=== PATIENT | male | born 1955 | race Caucasian/White ===

== ENCOUNTER 2018-05-28 19:36 | Emergency (ER) | payer MEDICAID ==
--- NOTE | 2018-05-28 19:47 | EDPHY ---
H & P Stated Complaint: Pt Hx of asthma, insp/exp wheeze, compensating, applied O2 Time Seen by Provider: 05/28/18 19:47 HPI/ROS: CHIEF COMPLAINT: Dyspnea HISTORY OF PRESENT ILLNESS: The patient presents the emergency department with complaints of dyspnea. He has a history of asthma. He has been using his albuterol frequently today. The patient had been on Symbicort but has not use that medication in several months. The patient denies any fever or productive cough. He denies any asymmetric calf pain or swelling. The patient denies significant past medical history aside from asthma. REVIEW OF SYSTEMS: A comprehensive 10 point review of systems is otherwise negative aside from elements mentioned in the history of present illness. Source: Patient Exam Limitations: No limitations - Personal History Current Tetanus/Diphtheria Vaccine: Yes - Medical/Surgical History Hx Asthma: No Hx Chronic Respiratory Disease: Yes Hx Diabetes: No Hx Cardiac Disease: No Hx Renal Disease: No Hx Cirrhosis: No Hx Alcoholism: No Hx HIV/AIDS: No Hx Splenectomy or Spleen Trauma: No Other PMH: Asthma, - Social History Smoking Status: Never smoked - Physical Exam Exam: General Appearance: Alert, no distress Eyes: Pupils equal and round no pallor or injection ENT, Mouth: Mucous membranes moist Respiratory: Mild tachypnea, expiratory wheezing Cardiovascular: Regular rate and rhythm Gastrointestinal: Abdomen is soft and nontender, no masses, bowel sounds normal Neurological: 5/5 strength all 4 extremities Skin: Warm and dry, no rashes Musculoskeletal: Neck is supple nontender Extremities: symmetrical, full range of motion Constitutional: Initial Vital Signs Heart Rate 82 05/28/18 19:40 Respiratory Rate 22 H 05/28/18 19:40 Blood Pressure 138/76 H 05/28/18 19:40 O2 Sat (%) 88 L 05/28/18 19:40 O2 Delivery Mode Nasal Cannula O2 (L/minute) 2 Allergies/Adverse Reactions: No Known Allergies Allergy (Verified 05/28/18 19:45) Home Medications: Medication Instructions Recorded Albuterol Dose Unk 07/27/12 predniSONE [prednisone 20mg (RX)] 3 tab PO DAILY #15 tab 05/28/18 Medical Decision Making ED Course/Re-evaluation: The patient presents to the ED with an acute asthma exacerbation. The patient has wheezing and mildly tachypneic upon arrival. He was treated with albuterol , Atrovent and IV Solu-Medrol. Re-evaluated the patient at 10:00 p.m.. He states his breathing feels much more comfortable. He has no complaints of acute dyspnea. He is 93% on room air. The patient has adequate supplies of albuterol. He will be given a 5 day course of prednisone. He is advised to return to the emergency department for any recurrent dyspnea or other concerns. He will follow up his primary care provider for a recheck this week. Differential Diagnosis: Differential diagnosis considered includes asthma, bronchitis, pneumonia - Data Points Medications Given: Discontinued Medications Albuterol (Proventil Neb) 3 ml IH EDNOW ONE Stop: 05/28/18 19:50 Last Admin: 05/28/18 19:55 Dose: 3 ml Albuterol/Ipratropium (Duoneb) 3 ml IH EDNOW ONE Stop: 05/28/18 19:50 Last Admin: 05/28/18 19:55 Dose: 3 ml Methylprednisolone Sodium Succinate (Solu-Medrol) 125 mg IVP EDNOW ONE Stop: 05/28/18 19:50 Last Admin: 05/28/18 19:55 Dose: 125 mg Departure - Departure Disposition: Home, Routine, Self-Care Clinical Impression: Exacerbation of asthma Condition: Good Instructions: Bronchospasm (ED) Additional Instructions: 1. Use albuterol inhaler up to every 2 hr as needed. 2. Prednisone as directed for next 5 days. 3. Please return to the ED for worsening respiratory symptoms, high fever, chest pain or other concerns. 4. Please follow-up with your primary care provider for a recheck in the next week. Referrals: Roxane Douglass, PAC [Primary Care Provider] - As per Instructions
[2018-05-28] MEDS ORDERED: ALBUTEROL 3 ML DEYVIAL IH ONE (19:49)
[2018-05-28] MEDS ORDERED: methylPREDNISolone SOD SUCC 125 MG/2 ML VIAL IVP ONE (19:49)
[2018-05-28] MEDS ORDERED: IPRATROPIUM/ALBUTEROL 3 ML DEYVIAL IH ONE (19:49)
[2018-05-28] MEDS ORDERED: methylPREDNISolone SOD SUCC 125 MG/2 ML VIAL ONE (19:53)
[2018-05-28 22:06] VITALS: BP 128/83
== END 2018-05-28 22:06 | disposition home or self-care (01) ==
DX: J45.901 Unspecified asthma with (acute) exacerbation (principal)
CPT/HCPCS: 96374; J2930; J7613

== ENCOUNTER 2019-01-08 21:24 | Emergency (ER) | payer MEDICAID ==
[2019-01-08] MEDS ORDERED: IPRATROPIUM/ALBUTEROL 3 ML DEYVIAL IH ONE (21:41)
[2019-01-08] MEDS ORDERED: methylPREDNISolone SOD SUCC 125 MG/2 ML VIAL IVP ONE (21:41)
[2019-01-08 22:04] LABS: PLATELET COUNT 295 10^3/uL (150-400)
[2019-01-08] MEDS ORDERED: ALBUTEROL 3 ML DEYVIAL IH ONE (22:12)
--- NOTE | 2019-01-08 22:12 | EDPHY ---
H & P Stated Complaint: sob, cough, getting worse since last week Time Seen by Provider: 01/08/19 22:09 HPI/ROS: HPI: This is a 63-year-old male who presents with Chief Complaint: sob, cough, getting worse since last week Location: Chest Quality: Dyspnea, cough Duration: 1 week Signs and Symptoms: + shortness of breath at rest, + shortness of breath on exertion, + cough, no chest pain, no palpitations, no lower extremity edema, + wheezing, no orthopnea, no paroxysmal nocturnal dyspnea, no fever, no injury/ trauma, no hemoptysis, no carpal pedal spasms Timing: Gradually worsening Severity: Moderate to severe Context: Patient presents with one-week history of shortness of breath, nonproductive cough, wheezing that has slowly worsened. Patient reports that he has audible wheezing and increased work of breathing. He reports shortness breath at on exertion initially earlier in the week but now at rest. Denies any fever, headache, lower extremity edema, orthopnea, hemoptysis. Patient reports that he does not have inhalers at home. Nonsmoker. Did not receive influenza vaccine this year. Modifying Factors: Advair and albuterol inhaler Comment: ROS: A comprehensive 10 system review of systems is otherwise negative aside from elements mentioned in the history of present illness. MEDICAL/SURGICAL/SOCIAL HISTORY: Medical history: Asthma Surgical history: Denies Social history: Never smoked. CONSTITUTIONAL: Nontoxic-appearing, mild distress, elderly physically fit white male, awake and alert, no obvious distress HEENT: Atraumatic and normocephalic, PERRL, EOMI. Nares patent; no rhinorrhea; no nasal mucosal edema. Tympanic membranes clear. Oropharynx clear, no exudate and moist pink mucosa. Airway patent. No lymphadenopathy. No meningismus. Cardiovascular: Normal S1/S2, regular rate, regular rhythm, without murmur rub or gallop. PULMONARY/CHEST: Symmetrical and nontender. Inspiratory and expiratory wheezing bilaterally. Fair air movement. + accessory muscle usage. ABDOMEN: Soft, nondistended, nontender, no rebound, no guarding, no peritoneal signs, no masses or organomegaly. No CVAT. EXTREMITIES: 2/2 pulses, strength 5/5, no deformities, no clubbing, no cyanosis or edema. NEUROLOGICAL: no focal neuro deficits. GCS 15. SKIN: Warm and dry, no erythema. no rash. Good capillary refill. Source: Patient Exam Limitations: No limitations - Personal History Current Tetanus/Diphtheria Vaccine: Yes - Medical/Surgical History Hx Asthma: Yes Hx Chronic Respiratory Disease: Yes Hx Diabetes: No Hx Cardiac Disease: No Hx Renal Disease: No Hx Cirrhosis: No Hx Alcoholism: No Hx HIV/AIDS: No Hx Splenectomy or Spleen Trauma: No Other PMH: Asthma, oral surgeries - Social History Smoking Status: Never smoked Constitutional: Initial Vital Signs Temperature (C) 36.8 C 01/08/19 21:32 Heart Rate 72 01/08/19 21:32 Respiratory Rate 24 H 01/08/19 21:32 Blood Pressure 135/100 H 01/08/19 21:32 O2 Sat (%) 88 L 01/08/19 21:32 O2 Delivery Mode Room Air Allergies/Adverse Reactions: No Known Allergies Allergy (Verified 01/08/19 21:31) Home Medications: Medication Instructions Recorded Albuterol Dose Unk 07/27/12 Advair 250/50 (*) 01/08/19 Doxycycline Hyclate 100 mg PO BID #14 tab 01/08/19 predniSONE 50 mg PO DAILY 5 Days tablet 01/08/19 Medical Decision Making - Diagnostics Imaging Results: Imaging Impressions Chest X-Ray 01/08/19 21:35 Impression: 1. No active cardiopulmonary disease seen. ED Course/Re-evaluation: Vital signs reviewed and show O2 sats 88% on room air and tachypnea upon arrival. IV access, laboratory studies, medications, chest x-ray ordered Patient given DuoNeb, albuterol nebulizer and IV Solu-Medrol 125 mg Chest x-ray my read no opacity, no effusion, no pneumothorax, no widened mediastinum 2220: Labs reviewed. No signs of leukocytosis/anemia/platelet dysfunction/AMANDA/ electrolyte imbalance/VTE/CHF 2230: Ambulating pulse ox obtained O2 sat lowest 88%, average 89-90%. HR 83 Reassessed patient who reports moderate relief of symptoms. Recommended admission due to O2 sats 88% during ambulation. Patient politely declined. Vital signs improved at discharge. Given prepack of doxycycline, prescription for same for COPD exacerbation as well as steroids for the next few days. This patient was seen under the supervision of my secondary supervising physician. I evaluated care for this patient with attending. Discussed this patient with Dr. Caldwell. Differential Diagnosis: Shortness of breath including but not limited to pulmonary infectious process, COPD, asthma, pulmonary embolus and congestive heart failure. - Data Points Laboratory Results: Laboratory Results 01/08/19 21:55 01/08/19 21:55 01/08/19 01/08/19 01/08/19 21:55 21:55 21:55 WBC 7.42 10^3/uL 10^3/uL (3.80-9.50) RBC 6.17 10^6/uL 10^6/uL (4.40-6.38) Hgb 18.3 g/dL H g/dL (13.7-17.5) Hct 54.5 % H % (40.0-51.0) MCV 88.3 fL fL (81.5-99.8) MCH 29.7 pg pg (27.9-34.1) MCHC 33.6 g/dL g/dL (32.4-36.7) RDW 13.6 % % (11.5-15.2) Plt Count 295 10^3/uL 10^3/uL (150-400) MPV 8.3 fL L fL (8.7-11.7) Neut % (Auto) 56.2 % % (39.3-74.2) Lymph % (Auto) 22.0 % % (15.0-45.0) [place] % (Auto) 8.9 % % (4.5-13.0) Eos % (Auto) 11.3 % H % (0.6-7.6) Baso % (Auto) 1.5 % % (0.3-1.7) Nucleat RBC Rel Count 0.0 % % (0.0-0.2) Absolute Neuts (auto) 4.17 10^3/uL 10^3/uL (1.70-6.50) Absolute Lymphs (auto) 1.63 10^3/uL 10^3/uL (1.00-3.00) Absolute Monos (auto) 0.66 10^3/uL 10^3/uL (0.30-0.80) Absolute Eos (auto) 0.84 10^3/uL H 10^3/uL (0.03-0.40) Absolute Basos (auto) 0.11 10^3/uL H 10^3/uL (0.02-0.10) Absolute Nucleated RBC 0.00 10^3/uL 10^3/uL (0-0.01) Immature Gran % 0.1 % % (0.0-1.1) Immature Gran # 0.01 10^3/uL 10^3/uL (0.00-0.10) D-Dimer 0.35 ug/mLFEU ug/mLFEU (0.00-0.50) Sodium 137 mEq/L mEq/L (135-145) Potassium 4.4 mEq/L mEq/L (3.5-5.2) Chloride 100 mEq/L mEq/L (97-110) Carbon Dioxide 29 mEq/l mEq/l (22-31) Anion Gap 8 mEq/L mEq/L (6-14) BUN 20 mg/dL mg/dL (7-23) Creatinine 1.0 mg/dL mg/dL (0.7-1.3) Estimated GFR > 60 Glucose 95 mg/dL mg/dL (70-100) Calcium 9.8 mg/dL mg/dL (8.5-10.4) NT-Pro-B Natriuret Pep 21 pg/mL pg/mL (0-125) Medications Given: Discontinued Medications Albuterol (Proventil Neb) 3 ml IH EDNOW ONE Stop: 01/08/19 22:13 Last Admin: 01/08/19 22:36 Dose: 3 ml Albuterol/Ipratropium (Duoneb) 3 ml IH EDNOW ONE Stop: 01/08/19 21:42 Last Admin: 01/08/19 21:52 Dose: 3 ml Methylprednisolone Sodium Succinate (Solu-Medrol) 125 mg IVP EDNOW ONE Stop: 01/08/19 21:42 Last Admin: 01/08/19 21:51 Dose: 125 mg Departure - Departure Disposition: Home, Routine, Self-Care Clinical Impression: COPD with exacerbation Condition: Good Instructions: Emphysema (ED), COPD (Chronic Obstructive Pulmonary Disease) (ED) Additional Instructions: Rest as much as possible until you are feeling better. Take antibiotics as directed. Do not skip a dose. Take steroids daily x5 days. If symptoms do not improve in the next 3-4 days, follow-up with primary care provider. Continue to use Advair and albuterol inhaler. Referrals: Roxane Douglass, PAC [Primary Care Provider] - 3-4 days, if not improved Prescriptions: Doxycycline Hyclate 100 mg PO BID #14 tab predniSONE 50 mg PO DAILY 5 Days tablet
[2019-01-08] MEDS ORDERED: DOXYCYCLINE 100 MG PREPACK#2 BTL TAKEHOME ONE (23:09)
[2019-01-08 23:15] VITALS: BP 120/80
== END 2019-01-08 23:56 | disposition home or self-care (01) ==
DX: J44.1 Chronic obstructive pulmonary disease with (acute) exacerbation (principal)
CPT/HCPCS: 96374; J2930; J7613

== ENCOUNTER 2019-02-25 15:50 | Inpatient (IN) | payer MEDICAID | END 2019-02-27 16:30 | disposition home or self-care (01) | LOC: F1N 19:45 ==